=== PATIENT | female | born 1965 ===

== ENCOUNTER 2017-03-06 23:37 | Emergency (ER) | payer OTHER ==
[2017-03-06] MEDS ORDERED: LIDOCAINE 2% W/ EPI MPF 20 ML SOL ONE (23:50)
[2017-03-06 23:59] VITALS: BP 128/81; RESP 16; TEMP 98.4
[2017-03-07] MEDS ORDERED: LIDOCAINE 2% W/ EPI MPF 20 ML SOL INFIL ONE (00:30)
[2017-03-07] MEDS ORDERED: CEPHALEXIN 250 MG/5 ML BOTTLE PO ONE (01:32)
[2017-03-07] MEDS ORDERED: TDAP VACCINE 0.5 ML SUS IM ONE ×2 (01:33→01:38)
[2017-03-07] MEDS ORDERED: CEPHALEXIN 250 MG/5 ML BOTTLE ONE ×2 (01:36→01:37)
== END 2017-03-07 01:55 | disposition home or self-care (01) ==
LOC: ED 23:37
DX: S90.852A Superficial foreign body, left foot, initial encounter (principal)
CPT/HCPCS: 10120; 73620; 90471; 90715; 99283

== ENCOUNTER 2017-07-15 23:29 | Emergency (ER) | payer OTHER ==
[2017-07-15 23:47] VITALS: PULSE 88; RESP 16; TEMP 97.8; O2SAT 97
[2017-07-16] MEDS ORDERED: IBUPROFEN 600 MG TAB PO ONE (00:02)
[2017-07-16] MEDS ORDERED: IBUPROFEN 600 MG TAB ONE (00:09)
[2017-07-16 00:24] VITALS: BP 114/78
== END 2017-07-16 00:20 | disposition home or self-care (01) | DRG 563 ==
LOC: ED 23:29
DX: S83.92XA Sprain of unspecified site of left knee, initial encounter (principal); X50.0XXA Overexertion from strenuous movement or load, initial encounter
CPT/HCPCS: 99282; 99283; L1830

== ENCOUNTER 2018-11-10 14:56 | Emergency (ER) | payer BC, OTHER ==
[2018-11-10 14:56] VITALS: O2SAT 97
[2018-11-10 15:04] VITALS: BP 107/74; PULSE 94; RESP 20; TEMP 97.5
== END 2018-11-10 16:04 | disposition home or self-care (01) ==
LOC: ED 14:56
DX: J06.9 Acute upper respiratory infection, unspecified (principal)
CPT/HCPCS: 87430; 99282